=== PATIENT | female | born 1960 | race African-American/Black ===

== ENCOUNTER 2021-11-23 10:42 | Inpatient (IN) | payer OTHER ==
[2021-11-23 12:33] VITALS: BMI 27.4
[2021-11-23] MEDS ORDERED: ONDANSETRON *ODT* 4 MG TABLET SL PRN (16:14)
[2021-11-23] MEDS ORDERED: MAGNESIUM CITRATE 300 ML BOTTLE PO PRN (16:14)
[2021-11-23] MEDS ORDERED: NICOTINE POLACRILEX 2 MG GUM BUC PRN (16:14)
[2021-11-23] MEDS ORDERED: MAGNESIUM HYDROX 2400MG/30ML ORAL SUSPENSION 30 ML CUP PO PRN (16:14)
[2021-11-23] MEDS ORDERED: MENTHOL/PHENOL 1 EACH UD MM PRN (16:14)
[2021-11-23] MEDS ORDERED: BISMUTH SUBSALICYLATE 524 MG/30 ML PO PRN (16:14)
[2021-11-23] MEDS ORDERED: BUPRENORPHINE/NALOXONE 4 MG/1 MG FILM PACKET SL ONE ×2 (16:30→20:00)
[2021-11-23] MEDS: ACETAMINOPHEN 325 MG TABLET (FP) PO PRN (20:26)
[2021-11-23] MEDS ORDERED: MELATONIN 5 MG TABLETS PO SCH (22:00)
[2021-11-23] MEDS ORDERED: QUEtiapine FUMARATE 50 MG TABLET PO SCH (22:00)
[2021-11-23] MEDS ORDERED: MIRTAZAPINE 15 MG TABLET (FP) PO SCH (22:00)
[2021-11-23] MEDS: THIAMINE HCL 100 MG TABLET (FP) PO SCH (22:07)
[2021-11-23] MEDS: DOCUSATE SODIUM 100 MG CAPSULE (FP) PO SCH (22:07)
[2021-11-23] MEDS: METHOCARBAMOL 500 MG TABLET PO PRN (22:08)
[2021-11-23] MEDS: hydrOXYzine PAMOATE 25 MG CAPSULE (FP) PO PRN (22:09)
[2021-11-23] MEDS ORDERED: BUPRENORPHINE/NALOXONE 2 MG/0.5 MG FILM PACKET SL ONE (23:00)
[2021-11-23] MEDS ORDERED: BUPRENORPHINE HCL 2 MG TAB.SUBL SL ONE (23:00)
[2021-11-23] MEDS: CEPHALEXIN MONOHYDRATE 500 MG CAPSULE (UD) PO SCH (23:20)
[2021-11-24] MEDS: BUPRENORPHINE/NALOXONE 2 MG/0.5 MG FILM PACKET SL SCH ×4 (05:34→22:33)
[2021-11-24] MEDS: CEPHALEXIN MONOHYDRATE 500 MG CAPSULE (UD) PO SCH ×3 (05:34→18:18)
[2021-11-24] MEDS: ACETAMINOPHEN 325 MG TABLET (FP) PO PRN ×2 (05:46→18:18)
[2021-11-24] MEDS ORDERED: BUPRENORPHINE HCL 2 MG TAB.SUBL SL SCH (06:00)
[2021-11-24 10:37] LABS: HEMATOCRIT 32.6 % (32.4-45.2); HEMOGLOBIN 11.1 GM/dL (10.7-15.3); MCH 33.1 pg (25.7-33.7); MCHC 33.9 g/dl (32.0-36.0); MEAN CELL VOLUME 97.9 fl (80-96); PLATELET COUNT 311 10^3/uL (134-434); RBC 3.34 M/mm3 (3.60-5.2); RDW 13.3 % (11.6-15.6); WHITE BLOOD COUNT 5.3 K/mm3 (4.0-10.0)
[2021-11-24] MEDS: PRENATAL VITAMINS W/ FOLIC ACID TABLET (FP) PO SCH (10:44)
[2021-11-24] MEDS: NICOTINE 7 MG/24 HOURS TOPICAL PATCH TD SCH (10:44)
[2021-11-24] MEDS: DOCUSATE SODIUM 100 MG CAPSULE (FP) PO SCH ×2 (10:44→22:32)
[2021-11-24] MEDS: METHOCARBAMOL 500 MG TABLET PO PRN ×2 (10:45→18:18)
[2021-11-24 10:53] LABS: ALBUMIN 3.4 g/dl (3.4-5.0); BLOOD UREA NITROGEN 15.5 mg/dL (7-18)
[2021-11-24 10:56] LABS: CREATININE 0.8 mg/dL (0.55-1.3)
[2021-11-24 10:57] LABS: BILIRUBIN,TOTAL 0.4 mg/dL (0.2-1)
[2021-11-24] MEDS: QUEtiapine FUMARATE 50 MG TABLET PO SCH ×2 (13:01→22:32)
[2021-11-24] MEDS: SERTRALINE HCL 50 MG TABLET (FP) PO SCH (13:02)
[2021-11-24] MEDS ORDERED: cloNIDine HCL 0.1 MG TABLET PO ONE (13:17)
[2021-11-24] MEDS ORDERED: traZODone HCL 50 MG TABLET (FP) PO SCH (22:00)
[2021-11-24] MEDS: MAG HYDROX/AL HYDROX/SIMETH 30 ML UNIT-DOSE CUP PO PRN (22:13)
[2021-11-24] MEDS: THIAMINE HCL 100 MG TABLET (FP) PO SCH (22:32)
[2021-11-24] MEDS: MIRTAZAPINE 15 MG TABLET (FP) PO SCH (22:33)
[2021-11-24] MEDS: hydrOXYzine PAMOATE 25 MG CAPSULE (FP) PO PRN (22:39)
[2021-11-25] MEDS: CEPHALEXIN MONOHYDRATE 500 MG CAPSULE (UD) PO SCH ×5 (00:14→23:55)
[2021-11-25] MEDS: ACETAMINOPHEN 325 MG TABLET (FP) PO PRN (05:43)
[2021-11-25] MEDS: MAG HYDROX/AL HYDROX/SIMETH 30 ML UNIT-DOSE CUP PO PRN (09:04)
[2021-11-25] MEDS: SERTRALINE HCL 50 MG TABLET (FP) PO SCH (09:25)
[2021-11-25] MEDS: DOCUSATE SODIUM 100 MG CAPSULE (FP) PO SCH ×2 (09:25→22:28)
[2021-11-25] MEDS: PRENATAL VITAMINS W/ FOLIC ACID TABLET (FP) PO SCH (09:25)
[2021-11-25] MEDS: NICOTINE 7 MG/24 HOURS TOPICAL PATCH TD SCH (09:25)
[2021-11-25] MEDS: QUEtiapine FUMARATE 50 MG TABLET PO SCH ×2 (09:25→22:29)
[2021-11-25] MEDS: BUPRENORPHINE/NALOXONE 2 MG/0.5 MG FILM PACKET SL SCH ×2 (09:25→22:31)
[2021-11-25] MEDS ORDERED: BUPRENORPHINE HCL 2 MG TAB.SUBL SL SCH (10:00)
[2021-11-25] MEDS: METHOCARBAMOL 500 MG TABLET PO PRN (17:48)
[2021-11-25] MEDS: THIAMINE HCL 100 MG TABLET (FP) PO SCH (22:28)
[2021-11-25] MEDS: MIRTAZAPINE 15 MG TABLET (FP) PO SCH (22:28)
[2021-11-26] MEDS: CEPHALEXIN MONOHYDRATE 500 MG CAPSULE (UD) PO SCH ×4 (05:56→23:24)
[2021-11-26] MEDS: METHOCARBAMOL 500 MG TABLET PO PRN (05:57)
[2021-11-26] MEDS: hydrOXYzine PAMOATE 25 MG CAPSULE (FP) PO PRN ×2 (05:57→21:09)
[2021-11-26] MEDS: ACETAMINOPHEN 325 MG TABLET (FP) PO PRN ×2 (05:59→20:53)
[2021-11-26] MEDS: NICOTINE 7 MG/24 HOURS TOPICAL PATCH TD SCH (10:37)
[2021-11-26] MEDS: PRENATAL VITAMINS W/ FOLIC ACID TABLET (FP) PO SCH (10:37)
[2021-11-26] MEDS: QUEtiapine FUMARATE 50 MG TABLET PO SCH ×2 (10:38→21:09)
[2021-11-26] MEDS: DOCUSATE SODIUM 100 MG CAPSULE (FP) PO SCH ×2 (10:38→21:09)
[2021-11-26] MEDS: SERTRALINE HCL 50 MG TABLET (FP) PO SCH (10:38)
[2021-11-26] MEDS: BUPRENORPHINE/NALOXONE 2 MG/0.5 MG FILM PACKET SL SCH ×2 (10:39→21:09)
[2021-11-26] MEDS: MAG HYDROX/AL HYDROX/SIMETH 30 ML UNIT-DOSE CUP PO PRN ×2 (10:40→17:46)
[2021-11-26] MEDS: MIRTAZAPINE 15 MG TABLET (FP) PO SCH (21:09)
[2021-11-26] MEDS: THIAMINE HCL 100 MG TABLET (FP) PO SCH (21:10)
[2021-11-27] MEDS: hydrOXYzine PAMOATE 25 MG CAPSULE (FP) PO PRN (05:36)
[2021-11-27] MEDS: CEPHALEXIN MONOHYDRATE 500 MG CAPSULE (UD) PO SCH (05:36)
[2021-11-27] MEDS: ACETAMINOPHEN 325 MG TABLET (FP) PO PRN (05:38)
[2021-11-27] MEDS ORDERED: cloNIDine HCL 0.1 MG TABLET PO ONE (07:30)
[2021-11-27 09:19] VITALS: BP 141/78; PULSE 89; TEMP 97.3
[2021-11-27] MEDS: SERTRALINE HCL 50 MG TABLET (FP) PO SCH (09:52)
[2021-11-27] MEDS: DOCUSATE SODIUM 100 MG CAPSULE (FP) PO SCH (09:52)
[2021-11-27] MEDS: QUEtiapine FUMARATE 50 MG TABLET PO SCH (09:52)
[2021-11-27] MEDS ORDERED: BUPRENORPHINE HCL 2 MG TAB.SUBL SL SCH (10:00)
[2021-11-27] MEDS ORDERED: BUPRENORPHINE/NALOXONE 2 MG/0.5 MG FILM PACKET SL SCH (10:00)
== END 2021-11-27 10:00 | disposition home or self-care (01) | DRG 773 ==
LOC: YASAS 10:42 → EDBD 17:59 → Y3N 17:59
PROVIDERS: ADMIT Allergy & Immunology; ATTEND Allergy & Immunology
PROC: HZ2ZZZZ Detoxification Services for Substance Abuse Treatment (ICD-10-PCS; principal; 2021-11-23)
DX: F11.23 Opioid dependence with withdrawal (principal); F17.210 Nicotine dependence, cigarettes, uncomplicated; F31.81 Bipolar II disorder; F19.282 Other psychoactive substance dependence with psychoactive substance-induced sleep disorder; F19.24 Other psychoactive substance dependence with psychoactive substance-induced mood disorder; L03.317 Cellulitis of buttock; K21.9 Gastro-esophageal reflux disease without esophagitis; G47.00 Insomnia, unspecified; M35.05 Sjogren syndrome with inflammatory arthritis; Z86.19 Personal history of other infectious and parasitic diseases; Z88.1 Allergy status to other antibiotic agents; Z88.8 Allergy status to other drugs, medicaments and biological substances; Z98.890 Other specified postprocedural states
CPT/HCPCS: 36415; 80053; 81025; 85027; 86593; 86780; 93005; 93010; C9803; J0735; U0003; U0005

== ENCOUNTER 2021-11-25 10:38 | Emergency (ER) | payer OTHER ==
[2021-11-25 11:19] VITALS: BP 123/78; PULSE 88; TEMP 97; BMI 33.3
[2021-11-25] MEDS ORDERED: methylPREDNISolone NA SUCC 125 MG/2 ML VIAL IVPUSH ONE (12:25)
[2021-11-25] MEDS ORDERED: methylPREDNISolone NA SUCC 125 MG/2 ML VIAL ONE (12:45)
[2021-11-25 13:20] LABS: BASO % 1.1 % (0-2.0); EOS % 2.7 % (0-4.5); HEMATOCRIT 33.1 % (32.4-45.2); HEMOGLOBIN 11.2 GM/dL (10.7-15.3); LYMPH % 37.5 % (8-40); MCH 32.7 pg (25.7-33.7); MCHC 33.8 g/dl (32.0-36.0); MEAN CELL VOLUME 96.9 fl (80-96); MONO % 8.2 % (3.8-10.2); NEUT % 50.5 % (42.8-82.8); PLATELET COUNT 307 10^3/uL (134-434); RBC 3.41 M/mm3 (3.60-5.2); RDW 13.4 % (11.6-15.6); WHITE BLOOD COUNT 5.3 K/mm3 (4.0-10.0)
[2021-11-25 13:41] LABS: ALBUMIN 3.7 g/dl (3.4-5.0); BLOOD UREA NITROGEN 17.6 mg/dL (7-18)
[2021-11-25 13:44] LABS: CREATININE 0.8 mg/dL (0.55-1.3)
[2021-11-25 13:46] LABS: BILIRUBIN,TOTAL 0.3 mg/dL (0.2-1); TOT PROT 7.5 g/dl (6.4-8.2)
[2021-11-25] MEDS ORDERED: ACETAMINOPHEN 500 MG TABLET (FP) PO ONE (14:58)
[2021-11-25] MEDS ORDERED: ACETAMINOPHEN 500 MG TABLET (FP) ONE (15:01)
== END 2021-11-25 15:23 | disposition home or self-care (01) ==
LOC: JERFT 10:38
PROC: 3E033GC Introduction of Other Therapeutic Substance into Peripheral Vein, Percutaneous Approach (ICD-10-PCS; principal; 2021-11-25)
DX: L02.31 Cutaneous abscess of buttock (principal)
CPT/HCPCS: 36415; 74177-TC; 80053; 85025; 99285-25

== ENCOUNTER 2021-12-11 13:43 | Observation (INO) | payer OTHER ==
[2021-12-11] MEDS ORDERED: METOCLOPRAMIDE HCL INJECTION 10 MG/2 ML VIAL IVPB ONE (15:09)
[2021-12-11] MEDS ORDERED: HALOPERIDOL LACTATE 5 MG/ML ONE (15:51)
[2021-12-11] MEDS ORDERED: HALOPERIDOL LACTATE 5 MG/ML IM ONE (15:52)
[2021-12-11] MEDS ORDERED: ACETAMINOPHEN 325 MG TABLET (FP) PO ONE (17:33)
[2021-12-11] MEDS ORDERED: ACETAMINOPHEN 325 MG TABLET (FP) ONE (17:34)
[2021-12-11 17:41] LABS: HEMATOCRIT 33.3 % (32.4-45.2); HEMOGLOBIN 11.2 GM/dL (10.7-15.3); MCH 32.5 pg (25.7-33.7); MCHC 33.6 g/dl (32.0-36.0); MEAN CELL VOLUME 96.7 fl (80-96); MEAN PLT VOLUME 7.8 fl (7.5-11.1); MONO % 4.9 % (3.8-10.2); NEUT % 57.1 % (42.8-82.8); PLATELET COUNT 353 10^3/uL (134-434); RBC 3.44 M/mm3 (3.60-5.2); RDW 13.5 % (11.6-15.6); WHITE BLOOD COUNT 5.7 K/mm3 (4.0-10.0)
[2021-12-11 17:59] LABS: CHLORIDE 109 mmol/L (98-107); SODIUM 142 mmol/L (136-145)
[2021-12-11 18:01] LABS: CALCIUM 9.6 mg/dL (8.5-10.1)
[2021-12-11 18:02] LABS: ALBUMIN 4.2 g/dl (3.4-5.0); ANION GAP 9 MMOL/L (8-16); BLOOD UREA NITROGEN 19.9 mg/dL (7-18); CO2 24 mmol/L (21-32); GLUCOSE,RANDOM 87 mg/dL (74-106)
[2021-12-11 18:05] LABS: CREATININE 0.8 mg/dL (0.55-1.3); SGOT/AST 13 U/L (15-37); SGPT/ALT 22 U/L (13-61)
[2021-12-11 18:07] LABS: BILIRUBIN,TOTAL 0.3 mg/dL (0.2-1); TOT PROT 7.5 g/dl (6.4-8.2)
[2021-12-11 18:08] LABS: ALK PHOS 90 U/L (45-117)
[2021-12-11] MEDS ORDERED: MELATONIN 5 MG TABLETS PO ONE (20:18)
[2021-12-11] MEDS ORDERED: MELATONIN 5 MG TABLETS ONE (20:47)
[2021-12-11] MEDS ORDERED: QUEtiapine FUMARATE 25 MG TABLET PO ONE (21:05)
[2021-12-11] MEDS ORDERED: LIDOCAINE 5% TOPICAL PATCH TP ONE (21:05)
[2021-12-11] MEDS ORDERED: QUEtiapine FUMARATE 25 MG TABLET ONE (21:42)
[2021-12-11] MEDS ORDERED: LIDOCAINE 5% TOPICAL PATCH ONE (21:43)
[2021-12-11] MEDS ORDERED: GABAPENTIN 100 MG CAPSULE PO ONE (21:48)
[2021-12-11] MEDS ORDERED: GABAPENTIN 100 MG CAPSULE ONE (21:53)
[2021-12-11 22:05] LABS: EPI CELLS 4 /uL (0-25.1); HYALINE CASTS 2 /uL (0-3.1); URINE APPEARANCE CLEAR; URINE BACTERIA 184 /uL (0-1359); URINE BILIRUBIN NEGATIVE (NEGATIVE); URINE COLOR YELLOW; URINE GLUCOSE (UA) NEGATIVE (NEGATIVE); URINE KETONE NEGATIVE (NEGATIVE); URINE LEUK ESTERASE 2+ (NEGATIVE); URINE NITRITE NEGATIVE (NEGATIVE); URINE PROTEIN TRACE (NEGATIVE); URINE RBC 9 /uL (0-23.9); URINE UROBILINOGEN 0.2 mg/dL (0.2-1.0); URINE WBC 170 /uL (0-25.8)
[2021-12-11 22:26] LABS: OPIATES, URI NEGATIVE (NEGATIVE); URINE BARBITURATES NEGATIVE (NEGATIVE)
[2021-12-11 22:27] LABS: COCAINE, UR NEGATIVE (NEGATIVE); PHENCYCLIDINE,URINE NEGATIVE (NEGATIVE); URINE BENZODIAZEPINES NEGATIVE (NEGATIVE)
[2021-12-11] MEDS ORDERED: TIZANIDINE HCL 2 MG TABLET PO ONE (22:28)
[2021-12-11] MEDS ORDERED: traZODone HCL 50 MG TABLET (FP) PO ONE (22:28)
[2021-12-11 23:19] LABS: URINE AMPHETAMINES NEGATIVE (NEGATIVE)
[2021-12-12 00:38] LABS: METHADONE, UR NEGATIVE (NEGATIVE)
[2021-12-12] MEDS: NICOTINE 7 MG/24 HOURS TOPICAL PATCH TD SCH ×2 (01:57→11:25)
[2021-12-12 09:13] LABS: HEMATOCRIT 33.3 % (32.4-45.2); HEMOGLOBIN 11.6 GM/dL (10.7-15.3); MCH 33.1 pg (25.7-33.7); MCHC 34.8 g/dl (32.0-36.0); MEAN CELL VOLUME 95.1 fl (80-96); MEAN PLT VOLUME 7.2 fl (7.5-11.1); PLATELET COUNT 369 10^3/uL (134-434); RDW 13.5 % (11.6-15.6); WHITE BLOOD COUNT 4.8 K/mm3 (4.0-10.0)
[2021-12-12] MEDS ORDERED: PANTOPRAZOLE 20 MG TABLET PO ONE (09:27)
[2021-12-12] MEDS ORDERED: ENOXAPARIN NA (PORCINE) 40 MG/0.4 ML DISP.SYRIN SQ ONE (09:27)
[2021-12-12 09:43] LABS: CHLORIDE 106 mmol/L (98-107); SODIUM 140 mmol/L (136-145)
[2021-12-12 09:51] LABS: ALBUMIN 4.1 g/dl (3.4-5.0); CALCIUM 9.3 mg/dL (8.5-10.1); GLUCOSE,RANDOM 104 mg/dL (74-106)
[2021-12-12 09:52] LABS: ANION GAP 10 MMOL/L (8-16); BLOOD UREA NITROGEN 13.7 mg/dL (7-18); CO2 23 mmol/L (21-32)
[2021-12-12 09:54] LABS: CREATININE 0.7 mg/dL (0.55-1.3)
[2021-12-12 09:55] LABS: SGOT/AST 13 U/L (15-37); SGPT/ALT 23 U/L (13-61)
[2021-12-12 09:56] LABS: BILIRUBIN,TOTAL 0.7 mg/dL (0.2-1); TOT PROT 7.6 g/dl (6.4-8.2)
[2021-12-12 09:57] LABS: ALK PHOS 90 U/L (45-117)
[2021-12-12] MEDS: ENOXAPARIN NA (PORCINE) 40 MG/0.4 ML DISP.SYRIN SQ SCH (10:00)
[2021-12-12] MEDS: PANTOPRAZOLE 20 MG TABLET PO SCH (10:00)
[2021-12-12] MEDS: LIDOCAINE PATCH REMOVAL MC SCH (10:00)
[2021-12-12] MEDS ORDERED: ACETAMINOPHEN 325 MG TABLET (FP) ONE (11:56)
[2021-12-12] MEDS ORDERED: ACETAMINOPHEN 325 MG TABLET (FP) PO ONE ×2 (11:56→23:42)
[2021-12-12] MEDS ORDERED: LORazepam 2 MG TABLET PO ONE (14:34)
[2021-12-12] MEDS ORDERED: LORazepam 1 MG TABLET ONE (14:38)
[2021-12-12 17:37] LABS: BF GLUCOSE (CSF ONLY) 65 mg/dL (40-70); CSF APPEARANCE CLEAR (CLEAR); CSF COLOR COLORLESS (COLORLESS)
[2021-12-12 17:38] LABS: CSF WBC 2 mm3 (0-5)
[2021-12-13] MEDS ORDERED: LIDOCAINE 5% TOPICAL PATCH TP ONE (00:02)
[2021-12-13] MEDS: QUEtiapine FUMARATE 200 MG TABLET PO SCH ×2 (00:37→21:35)
[2021-12-13] MEDS: PANTOPRAZOLE 20 MG TABLET PO SCH (09:14)
[2021-12-13] MEDS: ENOXAPARIN NA (PORCINE) 40 MG/0.4 ML DISP.SYRIN SQ SCH (09:14)
[2021-12-13] MEDS: traZODone HCL 50 MG TABLET (FP) PO SCH (09:14)
[2021-12-13] MEDS: SERTRALINE HCL 50 MG TABLET (FP) PO SCH (09:15)
[2021-12-13] MEDS: NICOTINE 7 MG/24 HOURS TOPICAL PATCH TD SCH (09:15)
[2021-12-13] MEDS: LIDOCAINE PATCH REMOVAL MC SCH ×2 (09:15→21:43)
[2021-12-13] MEDS ORDERED: LIDOCAINE PATCH REMOVAL MC ONE (12:00)
[2021-12-13] MEDS: GABAPENTIN 300 MG CAPSULE PO SCH ×2 (13:01→21:36)
[2021-12-13] MEDS: CYCLOBENZAPRINE HCL 10 MG TABLET (FP) PO SCH ×2 (13:01→21:36)
[2021-12-13] MEDS: LIDOCAINE 5% TOPICAL PATCH TP SCH (13:01)
[2021-12-13 17:22] VITALS: BMI 26.2
[2021-12-13] MEDS: ACETAMINOPHEN 325 MG TABLET (FP) PO PRN (20:00)
[2021-12-14] MEDS: ACETAMINOPHEN 325 MG TABLET (FP) PO PRN ×3 (06:32→22:32)
[2021-12-14] MEDS: traZODone HCL 50 MG TABLET (FP) PO SCH (10:12)
[2021-12-14] MEDS: PANTOPRAZOLE 20 MG TABLET PO SCH (10:12)
[2021-12-14] MEDS: GABAPENTIN 300 MG CAPSULE PO SCH ×2 (10:12→21:03)
[2021-12-14] MEDS: SERTRALINE HCL 50 MG TABLET (FP) PO SCH (10:12)
[2021-12-14] MEDS: CYCLOBENZAPRINE HCL 10 MG TABLET (FP) PO SCH ×2 (10:13→21:03)
[2021-12-14] MEDS: NICOTINE 7 MG/24 HOURS TOPICAL PATCH TD SCH (10:13)
[2021-12-14] MEDS: LIDOCAINE 5% TOPICAL PATCH TP SCH (10:14)
[2021-12-14] MEDS: ENOXAPARIN NA (PORCINE) 40 MG/0.4 ML DISP.SYRIN SQ SCH (10:20)
[2021-12-14 12:00] LABS: MCH 32.5 pg (25.7-33.7); MCHC 33.3 g/dl (32.0-36.0); MEAN CELL VOLUME 97.6 fl (80-96); MEAN PLT VOLUME 7.5 fl (7.5-11.1); PLATELET COUNT 356 10^3/uL (134-434); RBC 3.38 M/mm3 (3.60-5.2); RDW 13.4 % (11.6-15.6); WHITE BLOOD COUNT 4.5 K/mm3 (4.0-10.0)
[2021-12-14 12:22] LABS: ALBUMIN 3.7 g/dl (3.4-5.0); BLOOD UREA NITROGEN 18.3 mg/dL (7-18); MAGNESIUM 2.3 mg/dL (1.8-2.4)
[2021-12-14 12:25] LABS: CREATININE 0.8 mg/dL (0.55-1.3)
[2021-12-14 12:26] LABS: PHOSPHOROUS 3.5 mg/dL (2.5-4.9)
[2021-12-14 12:27] LABS: BILIRUBIN,TOTAL 0.3 mg/dL (0.2-1)
[2021-12-14] MEDS ORDERED: POLYETHYLENE GLYCOL (HEALTHYLAX) 3350 17 GM PACKET PO ONE (15:51)
[2021-12-14] MEDS ORDERED: ACETAMINOPHEN/CAFFEINE/BUTALBITAL 1 TAB PO ONE (15:51)
[2021-12-14] MEDS: QUEtiapine FUMARATE 200 MG TABLET PO SCH (21:03)
[2021-12-14] MEDS: LIDOCAINE PATCH REMOVAL MC SCH (21:04)
[2021-12-15 08:52] LABS: INR 0.94 (0.83-1.09); PROTHROMBIN TIME (PATIENT) 10.8 SEC (9.7-13.0)
[2021-12-15 08:55] LABS: ACTIVATED PTT 27.7 SECONDS (25.2-36.5)
[2021-12-15 09:03] LABS: BASO % 1.2 % (0-2.0); EOS % 4.3 % (0-4.5); HEMATOCRIT 32.8 % (32.4-45.2); LYMPH % 46.4 % (8-40); MCH 32.6 pg (25.7-33.7); MCHC 33.6 g/dl (32.0-36.0); MEAN CELL VOLUME 96.9 fl (80-96); MEAN PLT VOLUME 7.2 fl (7.5-11.1); MONO % 7.2 % (3.8-10.2); NEUT % 40.9 % (42.8-82.8); PLATELET COUNT 341 10^3/uL (134-434); RBC 3.39 M/mm3 (3.60-5.2); RDW 13.3 % (11.6-15.6); WHITE BLOOD COUNT 4.3 K/mm3 (4.0-10.0)
[2021-12-15 09:19] LABS: CALCIUM 9.2 mg/dL (8.5-10.1)
[2021-12-15 09:20] LABS: ALBUMIN 3.8 g/dl (3.4-5.0); BLOOD UREA NITROGEN 15.1 mg/dL (7-18); MAGNESIUM 2.4 mg/dL (1.8-2.4)
[2021-12-15 09:23] LABS: CREATININE 0.7 mg/dL (0.55-1.3)
[2021-12-15 09:24] LABS: TOT PROT 7.2 g/dl (6.4-8.2)
[2021-12-15 09:25] LABS: BILIRUBIN,TOTAL 0.3 mg/dL (0.2-1)
[2021-12-15] MEDS: GABAPENTIN 300 MG CAPSULE PO SCH (09:32)
[2021-12-15] MEDS: ENOXAPARIN NA (PORCINE) 40 MG/0.4 ML DISP.SYRIN SQ SCH (09:32)
[2021-12-15] MEDS: SERTRALINE HCL 50 MG TABLET (FP) PO SCH (09:32)
[2021-12-15] MEDS: CYCLOBENZAPRINE HCL 10 MG TABLET (FP) PO SCH (09:32)
[2021-12-15] MEDS: NICOTINE 7 MG/24 HOURS TOPICAL PATCH TD SCH (09:32)
[2021-12-15] MEDS: traZODone HCL 50 MG TABLET (FP) PO SCH (09:32)
[2021-12-15] MEDS: PANTOPRAZOLE 20 MG TABLET PO SCH (09:32)
[2021-12-15] MEDS: LIDOCAINE 5% TOPICAL PATCH TP SCH (09:33)
[2021-12-15] MEDS: ACETAMINOPHEN 325 MG TABLET (FP) PO PRN (09:34)
[2021-12-15] MEDS ORDERED: SODIUM PHOSPHATE/NA BIPHOS 133 ML ENEMA PR ONE (10:40)
[2021-12-15 14:34] VITALS: BP 114/66; PULSE 86; TEMP 98.5
[2021-12-17 16:17] LABS: ALPHA-1-GLOBULIN,CSF 3.2 % (1.1-6.6); ALPHA-2-GLOBULIN,CSF 4.2 % (3.0-12.6); BETA GLOBULIN,CSF 14.5 % (7.3-17.9); GAMMA GLOBULIN,CSF 8.8 % (3.0-13.0); M-SPIKE CSF Not Observed % (Not Observed)
== END 2021-12-15 14:50 | disposition home or self-care (01) ==
LOC: JER 13:43 → JERBED 18:25 → INTOOBSV 18:25 → J7W 12-12 23:25
PROVIDERS: ADMIT Internal Medicine
PROC: 3E023GC Introduction of Other Therapeutic Substance into Muscle, Percutaneous Approach (ICD-10-PCS; principal; 2021-12-11)
DX: Z03.6 Encounter for observation for suspected toxic effect from ingested substance ruled out (principal); G35 Multiple sclerosis; F25.9 Schizoaffective disorder, unspecified; F32.9 Major depressive disorder, single episode, unspecified; F19.10 Other psychoactive substance abuse, uncomplicated; M35.00 Sjogren syndrome, unspecified; Z88.8 Allergy status to other drugs, medicaments and biological substances; K21.9 Gastro-esophageal reflux disease without esophagitis; Z91.018 Allergy to other foods; Z29.9 Encounter for prophylactic measures, unspecified; R51.9 Headache, unspecified; M54.59 Other low back pain; Z72.0 Tobacco use; Z90.79 Acquired absence of other genital organ(s); Z87.19 Personal history of other diseases of the digestive system; R63.0 Anorexia; R63.4 Abnormal weight loss
CPT/HCPCS: 36415; 70450-TC; 70551-TC; 70553-TC; 80053; 80307; 81003; 82945; 83735; 83916; 84100; 84157; 84166; 84484; 85025; 85027; 85610; 85730; 86592; 86617; 87070; 87086; 87102; 87205; 87210; 87252; 93005; 93010; 96372; 99285-25; A9579; C9803; G0378; U0003; U0005